=== PATIENT | female | born 1975 | race Caucasian/White ===

== ENCOUNTER 2017-03-14 19:36 | Emergency (ER) | payer OTHER ==
[~2017-03-14] VITALS: Ht 165.1 cm; Wt 97.5 kg
[~2017-03-14 19:36] MED LIST: ACYCLOVIR200 MG PO; AMOXICILLIN500 MG PO; CATAPRES0.2 MG PO; CIPRO500 MG PO; DICYCLOMINE HCL20 MG PO; KEFLEX500 MG PO; NORCO 5-325 TA1 EACH PO; NORTRIPTYLINE H10 MG PO; PREDNISONE10 MG PO; PRILOSEC20 MG PO
[2017-03-14] MEDS ORDERED: HYDROCODON-ACE1 EA10 PO (23:41)
[2017-03-15] MEDS ORDERED: TRAMADOL HCL50 MG PO (01:49)
[2017-03-15] MEDS ORDERED: SOMA350 MG PO (01:50)
== END 2017-03-15 02:13 | disposition home or self-care (01) ==
LOC: ED 19:36
DX: M54.5 Low back pain (principal); F41.9 Anxiety disorder, unspecified; I10 Essential (primary) hypertension; F43.10 Post-traumatic stress disorder, unspecified; Z87.891 Personal history of nicotine dependence; Z87.442 Personal history of urinary calculi; Z90.710 Acquired absence of both cervix and uterus; Z90.49 Acquired absence of other specified parts of digestive tract; Z88.2 Allergy status to sulfonamides; Z88.5 Allergy status to narcotic agent; Z88.8 Allergy status to other drugs, medicaments and biological substances; Z79.891 Long term (current) use of opiate analgesic; Z79.899 Other long term (current) drug therapy
CPT/HCPCS: 99283